=== PATIENT | female | born 1950 | race Caucasian/White ===

== ENCOUNTER 2020-04-20 09:58 | Emergency (ER) | payer MEDICARE, SELFPAY ==
--- NOTE | ~2020-04-20 | CT_ITS ---
EXAMINATION: CT brain wo con, CT cervical spine wo con EXAM DATE: 04/20/2020 11:23 INDICATION: Fall, occipital head injury, pain. TECHNIQUE: Spiral CT of the head was performed without contrast. Axial, coronal and sagittal images were reviewed. Spiral CT of the cervical spine was performed without contrast. Axial images were rev iewed. Coronal and sagittal reformatted images were also reviewed. The dose-length product (DLP) fo r this examination was 605.33 (accession [id number]), 483.19 (accession [id number]) mGy-cm. The exposure was tailored according to patient size, and iterative reconstruction (ASIR) was used as additional dose reduction technique. There is no prior study for comparison. FINDINGS: HEAD CT: There is no acute intraparenchymal hemorrhage. No evidence of intraparenchymal brain mass l esion. No evidence of acute infarction. There is no mass effect or midline shift. There is no obstru ctive hydrocephalus suspected. There are no extra-axial collections. There are no acute calvarial f ractures. The orbits are unremarkable. Small posterior scalp swelling, contusion. Trace fluid in th e right maxillary sinus. CERVICAL CT: There is no evidence of acute cervical fracture. The odontoid process is intact. Pre- dens space is normal. Prevertebral soft tissue is normal. There are no soft tissue abnormalities id entified. There is no disc space widening or traumatic vertebral body subluxation suspected. Overall moderate cervical spondylosis. A detailed level by level evaluation of spondylosis can be added as a ddendum if requested. IMPRESSION: 1. No acute intracranial findings or cervical fracture. 2. Small posterior scalp contusion, swelling. Reviewed, dictated and finalized at location A. LING MACHINE OPERATOR IMPRESSION: 1. No acute intracranial findings or cervical fracture. 2. Small posterior scalp contusion, swelling.
[2020-04-20 10:12] VITALS: BP 160/80; PULSE 67; RESP 14; TEMP 36.7; O2SAT 96
--- NOTE | 2020-04-20 11:42 | ED.GENADULT ---
HPI - General Adult General Chief complaint: Headache Stated complaint: head injury Source: patient History of Present Illness HPI narrative: Patient is a 69 y/o female complaining of occipital headache after she fell backwards and hit her head 1-2 hours ago. She states that she was taking some wood out of her SUV and the lift gate opened up and struck her and pushed her back causing her to fall backwards. She describes her pain as aching and rates it as 1/10. She denies any LOC. She denies any neck pain, back pain, chest pain or abdominal pain. She has no focal weakness or numbness. Related Data Home Medications Medication Instructions Recorded Confirmed omeprazole 20 mg capsule,delayed 20 mg PO DAILY 04/13/19 05/10/19 release Adult Probiotic 3,000 mmu cells PO DAILY 05/10/19 05/22/19 Adults Multivitamin 1 tablet PO DAILY 05/10/19 05/22/19 Fish Oil 1 cap PO DAILY 05/10/19 05/22/19 Glucosamine Chondroitin 1 cap PO DAILY 05/10/19 05/22/19 cholecalciferol (vitamin D3) 2,000 unit PO BID 05/10/19 05/22/19 coenzyme Q10 [Co Q-10] 100 mg PO DAILY 05/10/19 05/22/19 cranberry 400 mg PO DAILY 05/10/19 05/22/19 vitamin E 400 unit PO 3XW 05/10/19 05/10/19 Allergies Allergy/AdvReac Type Severity Reaction Status Date / Time No Known Allergies Allergy Verified 05/22/19 09:42 Review of Systems Constitutional: Constitutional: Denies chills, Denies fever(s), Reports headache(s) and Denies weakness Eyes: Eyes: Denies blurry vision ENT: Reports headache(s) and Denies neck pain Cardiovascular: Cardiovascular: Denies chest pain and Denies dyspnea Respiratory: Respiratory: Denies cough and Denies dyspnea Gastrointestinal: Gastrointestinal: Denies abdominal pain, Denies diarrhea, Denies nausea and Denies vomiting Genitourinary: Genitourinary: Denies hematuria and Denies dysuria Musculoskeletal: Musculoskeletal: Denies back pain and Denies neck pain Neurologic: Reports headache(s) and Denies weakness PMFSH Family History Family History Sibling Family history of gastrointestinal disorder Patient's brother is in good health Family history of genetic disorder Father Acute myocardial infarction Mother Family history of chronic obstructive pulmonary disease Grandparent Carcinoma of colon Social History Social History Smoking status: Never smoker Second hand tobacco smoke exposure: No Alcohol intake: never Exam Const: General: no acute distress and well developed Orientation/consciousness: oriented to person, oriented to place, oriented to time and patient oriented x3 HENMT: Head: normocephalic Ears: external ears normal General nose exam: Normal external nose present Eyes: General: appearance normal, both eyes and all related structures Conjunctivae: conjunctivae normal Neck: Neck: normal visual inspection and full ROM Chest: Chest palpation & inspection: normal inspection of the chest and no tenderness Resp: Effort & Inspection: normal respiratory effort Auscultation: clear to auscultation bilaterally Cardio: Rate: regular rate Rhythm: regular rhythm GI: GI Palp: No abdominal tenderness and Yes Soft to palpation Skin: General skin exam: normal color and turgor normal Neuro: General: oriented to person, oriented to place, oriented to time and patient oriented x3 Cranial nerves: Yes CN's II-XII intact bilaterally Cognition (Neuro): normal cognition Speech: normal speech Motor exam (neuro): 5/5 motor strength present throughout Sensory Exam: normal sensation Coordination: [id number] test normal and [id number] test normal Extrem: General: normal to inspection, full ROM and no pedal edema Psych: Appearance: grossly normal Mental Status: mental status grossly normal Affect: normal affect Course Vital Signs Vital signs: Vital Signs Temperature 36.7 C 04/20/20
[2020-04-20 12:00] VITALS: BP 154/70; PULSE 76; RESP 16; O2SAT 99
== END 2020-04-20 12:00 | disposition home or self-care (01) ==
PROVIDERS: Emergency Provider Emergency Medicine; PCP Physician Assistant
DX: S00.03XA Contusion of scalp, initial encounter (principal); W18.09XA Striking against other object with subsequent fall, initial encounter
CPT/HCPCS: 70450; 72125; 99284

== ENCOUNTER → 2020-05-04 18:12 | Outpatient (CLI) | payer MEDICARE, SELFPAY ==
--- NOTE | ~2020-05-04 | MM_ITS ---
EXAMINATION: MM screening homero BI w jo HISTORY: Screening mammogram TECHNIQUE: Craniocaudal and mediolateral oblique 3-D tomosynthesis images were obtained and synthetic 2-D images were generated. CAD analysis was submitted and interpreted. COMPARISON: 04/01/2019, 10/16/2017, 07/25/2016 bilateral digital screening mammogram examinations BREAST PARENCHYMAL COMPOSITION: There are scattered areas of fibroglandular density. FINDINGS: Stable mild fibroglandular asymmetry. There is no evidence of suspicious mass, calcificatio n, or architectural distortion to suggest malignancy in either breast. There has been no suspicious i nterval change. IMPRESSION: 1. No mammographic evidence of malignancy. 2. Recommend routine screening mammography in one year. BI-RADS Category 2: Benign finding(s). Reviewed, dictated and finalized at location A. LLER WORKER
== END ==
PROVIDERS: PCP Physician Assistant; Visit Provider Obstetrics & Gynecology
DX: Z12.31 Encounter for screening mammogram for malignant neoplasm of breast (principal)
CPT/HCPCS: 77063; 77067

== ENCOUNTER → 2021-06-03 02:33 | Outpatient (CLI) | payer MEDICARE, SELFPAY ==
[2021-06-04 14:05] LABS: SARS-CoV-2 RNA PCR Positive
== END ==
PROVIDERS: PCP Physician Assistant; Visit Provider Physician Assistant
DX: U07.1 COVID-19 (principal)
CPT/HCPCS: C9803; U0003; U0005

== ENCOUNTER 2021-06-09 07:46 | Outpatient (RCR) | payer MEDICARE, SELFPAY ==
[2021-06-09 13:40] VITALS: BP 134/66; PULSE 78; RESP 20; TEMP 36.1; O2SAT 98
[2021-06-09] MEDS: diphenhydrAMINE HCl CAP 25 MG CAPSULE PO (13:45)
[2021-06-09] MEDS: FAMOTIDINE 20 MG TABLET PO (13:45)
[2021-06-09] MEDS: ACETAMINOPHEN 325 MG TABLET 650 MG PO (13:45)
[2021-06-09 14:47] VITALS: BP 140/62; PULSE 66; O2SAT 97
--- NOTE | 2021-06-09 14:49 | PC.NURSE ---
Patient stated she was feeling warm to the chest and VS as recorded. It only lasted for less than 1minute and stated it has gone away, and at this time she has no complaints of any pain or problems. Continue to observe at this time.
[2021-06-09] MEDS: HYDROCORTISONE SODIUM SUCCINATE 100 MG/2 ML VIAL IV PUSH (14:56)
--- NOTE | 2021-06-09 15:03 | PC.NURSE ---
Patient having feelings of flushing in the chest area and up into her neck. Denies shortness of breath or chest pain. Solucortef given. Patient's vital signs are stable. Feeling of flushing started approximately 15 minutes after completion of monoclonal antibody. After the administration of Solucortef, patient states that feeling of flushing have gone away.
[2021-06-09 15:16] VITALS: BP 135/59; PULSE 55; O2SAT 98
== END 2021-06-09 17:00 ==
LOC: AMCINF 07:46
PROVIDERS: PCP Internal Medicine; Referring Provider Internal Medicine; Visit Provider Internal Medicine Hematology & Oncology
DX: U07.1 COVID-19 (principal)
CPT/HCPCS: 96374; A9270; J1720; M0247

== ENCOUNTER → 2021-08-23 18:13 | Outpatient (CLI) | payer MEDICARE, SELFPAY ==
--- NOTE | ~2021-08-23 | MM_ITS ---
EXAMINATION: MM screening homero BI w jo HISTORY: Screening mammogram TECHNIQUE: Craniocaudal and mediolateral oblique 3-D tomosynthesis images were obtained and synthetic 2-D images were generated. CAD analysis was submitted and interpreted. COMPARISON: 05/04/2020, 04/01/2019, 10/16/2017 bilateral screening mammogram examinations BREAST PARENCHYMAL COMPOSITION: There are scattered areas of fibroglandular density. FINDINGS: Stable mild fibroglandular asymmetry, possibly related to prior benign excisional biopsy on the right. There is no evidence of suspicious mass, calcification, or architectural distortion to suh ggest malignancy in either breast. There has been no suspicious interval change. IMPRESSION: 1. No mammographic evidence of malignancy. 2. Recommend routine screening mammography in one year. BI-RADS Category 2: Benign finding(s). Reviewed, dictated and finalized at location A.
== END ==
PROVIDERS: Visit Provider Obstetrics & Gynecology
DX: Z12.31 Encounter for screening mammogram for malignant neoplasm of breast (principal)
CPT/HCPCS: 77063; 77067

== ENCOUNTER → 2022-12-12 12:03 | Outpatient (CLI) | payer MEDICARE, SELFPAY ==
--- NOTE | ~2022-12-12 | MM_ITS ---
EXAMINATION: MM screening homero BI w jo HISTORY: Screening mammogram TECHNIQUE: Craniocaudal and mediolateral oblique 3-D tomosynthesis images were obtained and synthetic 2-D images were generated. CAD analysis was submitted and interpreted. COMPARISON: 08/23/2021, 05/04/2020, 04/01/2019 bilateral screening mammogram examinations BREAST PARENCHYMAL COMPOSITION: There are scattered areas of fibroglandular density. FINDINGS: Stable fibroglandular asymmetry. There is no evidence of suspicious mass, calcification, or architectural distortion to suggest malignancy in either breast. There has been no suspicious interv al change. IMPRESSION: 1. Stable mild fibroglandular asymmetry. No mammographic evidence of malignancy. 2. Recommend routine screening mammography in one year. BI-RADS Category 2: Benign finding(s). Reviewed, dictated and finalized at location A. IMPRESSION: 1. Stable mild fibroglandular asymmetry. No mammographic evidence of malignancy . 2. Recommend routine screening mammography in one year. BI-RADS Category 2: Benign finding(s).
== END ==
PROVIDERS: PCP Obstetrics & Gynecology; Visit Provider Obstetrics & Gynecology
DX: Z12.31 Encounter for screening mammogram for malignant neoplasm of breast (principal)
CPT/HCPCS: 77063; 77067

== ENCOUNTER 2023-10-04 14:22 | Emergency (ER) | payer MEDICARE, SELFPAY ==
--- NOTE | ~2023-10-04 | CT_ITS ---
EXAMINATION: CT brain wo con DATE: 10/04/2023 14:42 INDICATION: Head injury. TECHNIQUE: Computed tomography (CT) of the head was performed without intravenous contrast. The mA wa s adjusted according to patient size. Iterative reconstruction technique was employed. The dose-lengt h product was 681.00 mGy-cm. COMPARISON: Head CT 04/20/2020 FINDINGS: There is no intracranial hemorrhage, acute infarction, or abnormal intracranial mass lesion . There are scattered areas of low attenuation in the cerebral white matter, which is within normal l imits for the patient's age. The ventricles are normal in size. There is mucosal thickening in the pa ranasal sinuses. There are fractures of the nasal bones. The mastoid air cells are normal. IMPRESSION: 1. Fractures of the nasal bones. 2. Normal aging brain. Reviewed, dictated and finalized at location A.
[2023-10-04 14:30] VITALS: BP 155/82; PULSE 77; RESP 18; TEMP 36.6; O2SAT 95
--- NOTE | 2023-10-04 15:41 | ED.FALL ---
HPI - Fall General Chief Complaint: Fall Stated Complaint: fall Time Seen by Provider: 10/04/23 14:26 History of Present Illness HPI Narrative: Patient is a 73-year-old female who presents ER after a fall. She is walking in her living room when her foot caught the rug and she fell face down. She struck her head. No LOC. She does not take blood thinning medications. She has had pain and bruising over her nose. She reports a family member of a head bleed after traumatic injury and she is concerned the same may happen her. No numbness or weakness to an arm or leg. No change in vision or hearing. Patient did have bleeding from her nose after trauma. Related Data Home Medications Medication Instructions Recorded Confirmed omeprazole 20 mg capsule,delayed 20 mg PO DAILY 04/13/19 10/24/22 release cholecalciferol (vitamin D3) 50 2,000 unit PO BID 05/10/19 10/24/22 mcg (2,000 unit) tablet coenzyme Q10 100 mg capsule (Co 100 mg PO DAILY 05/10/19 10/24/22 Q-10) cranberry 400 mg capsule 400 mg PO DAILY 05/10/19 10/24/22 glucosamine sulf dipot 1 cap PO DAILY 05/10/19 10/24/22 chlr,msm,chond 550 mg-C 30 mg-sumanth 1 mg capsule (Glucosamine Chondroitin) lactobacillus combination no.8 3 3,000 mmu cells PO DAILY 05/10/19 10/24/22 billion cell capsule (Adult Probiotic) omega-3 950 mg-dha 320 mg-epa 630 1 cap PO DAILY 05/10/19 10/24/22 mg-fish oil 1,360 mg capsule (Fish Oil) vitamin E 268 mg (400 unit) capsule 400 unit PO 3XW 05/10/19 10/24/22 Allergies Allergy/AdvReac Type Severity Reaction Status Date / Time No Known Allergies Allergy Verified 10/04/23 14:33 Review of Systems Review of Systems: All systems reviewed & are unremarkable except as noted in HPI and below Constitutional: Constitutional: Reports no additional constitutional complaints ENT: Denies nasal congestion and Denies sore throat Comments: Nasal pain Cardiovascular: Cardiovascular: Reports no additional cardiovascular complaints Respiratory: Respiratory: Reports no additional respiratory complaints Gastrointestinal: Gastrointestinal: Reports no additional gastrointestinal complaints Neurologic: Reports system reviewed and no additional complaints, except as documented PMF Past Medical History Medical History Broken wrist Hyperlipidemia Hyperparathyroidism Surgical History Surgical History H/O breast biopsy History of delivery Hx of tonsillectomy Family History Family History Sibling Family history of gastrointestinal disorder Patient's brother is in good health Family history of genetic disorder Father Acute myocardial infarction Mother Family history of chronic obstructive pulmonary disease Grandparent Carcinoma of colon Social History Social History Smoking status: Never smoker Second hand tobacco smoke exposure: No Alcohol intake: never Substance use: unknown Lack of Transportation: No Lack of Food: Never True Current Housing: I Have Housing Concerned About Future Housing: No Difficulty Paying Gas/Electric Bills: No Difficulty Paying for Meds: No Currently Unemployed: No Education: High School Diploma/GED Difficulty w/ Childcare or Family Care: No Exam Narrative: GENERAL: Well-appearing, well-nourished, and in no acute distress. HEAD: Normocephalic, soft tissue swelling upper central forehead EYES: PERRL and EOMI. ENT: Mucous membranes moist. bruising over the bridge of the nose as well as tenderness. CHEST: Clear to auscultation. No respiratory distress. HEART: Regular rate and rhythm. Normal peripheral pulses. EXTREMITIES: Normal range of motion. No edema. SKIN: Warm, dry, no rash. NEUR
[2023-10-04 16:10] VITALS: BP 142/65; PULSE 77; RESP 19; TEMP 36.6; O2SAT 93
== END 2023-10-04 16:11 | disposition home or self-care (01) ==
PROVIDERS: Emergency Provider Emergency Medicine; PCP Physician Assistant
DX: S02.2XXA Fracture of nasal bones, initial encounter for closed fracture (principal); R04.0 Epistaxis; E78.5 Hyperlipidemia, unspecified; E21.3 Hyperparathyroidism, unspecified; W18.09XA Striking against other object with subsequent fall, initial encounter
CPT/HCPCS: 70450; 99284

== ENCOUNTER 2023-10-06 16:26 | Emergency (ER) | payer MEDICARE, SELFPAY ==
--- NOTE | ~2023-10-06 | CT_ITS ---
EXAMINATION:CT diagnostic chest wo con DATE: 10/06/2023 20:14 INDICATION: Left chest pain. Fall. TECHNIQUE: Computed tomography (CT) of the chest was performed without intravenous contrast. Automate d exposure control and iterative reconstruction technique were employed. The dose-length product (DLP ) was 819.56 mGy-cm. COMPARISON: None. FINDINGS: The lungs demonstrate mild atelectasis. There is mild bronchiectasis in the inferior lungs. A calcified left lung nodule is consistent with old granulomatous disease. No pleural effusion. The heart size is normal. No pericardial effusion. There is a 2.7 m cyst in right kidney. There are bridg ing endplate osteophytes at multiple levels in the spine, consistent with diffuse idiopathic skeletal hyperostosis (DISH). There is mild thoracic spondylosis and severe cervical spondylosis. There are o ld healed bilateral rib fractures. IMPRESSION: 1. No acute rib fracture. Reviewed, dictated and finalized at location E. IMPRESSION: 1. No acute rib fracture.
--- NOTE | 2023-10-06 16:28 | ECG_ITS ---
SEE SCANNED COPY FOR CONFIRMED REPORT MTDD
[2023-10-06 16:44] VITALS: BP 142/71; PULSE 69; RESP 18; TEMP 36.2; O2SAT 96
[2023-10-06 19:25] VITALS: BP 154/76; PULSE 77; RESP 15; O2SAT 95
[2023-10-06 19:32] VITALS: BP 148/72; PULSE 73; RESP 13; O2SAT 94
[2023-10-06 19:51] VITALS: BP 142/66; PULSE 76; RESP 16; O2SAT 97
--- NOTE | 2023-10-06 20:05 | ED.FALL ---
HPI - Fall General Chief Complaint: Fall Stated Complaint: pain under left breast Time Seen by Provider: 10/06/23 19:28 Source: patient Mode of arrival: ambulatory Limitations: no limitations History of Present Illness HPI Narrative: This is a 73 year old female who presents to the ED with chief complaint of left-sided rib pain following a fall that occurred 2 days ago. Patient reports that she was seen here and had imaging done of the brain which was fine as well as facial imaging that showed nondisplaced nasal bone fracture. However over the past couple of days patient has had increased left-sided rib pain anteriorly. Reports today it started to hurt a lot when she took a deep breath. Denies any further sites of pain or injury. Related Data Home Medications Medication Instructions Recorded Confirmed omeprazole 20 mg capsule,delayed 20 mg PO DAILY 04/13/19 10/24/22 release cholecalciferol (vitamin D3) 50 2,000 unit PO BID 05/10/19 10/24/22 mcg (2,000 unit) tablet coenzyme Q10 100 mg capsule (Co 100 mg PO DAILY 05/10/19 10/24/22 Q-10) cranberry 400 mg capsule 400 mg PO DAILY 05/10/19 10/24/22 glucosamine sulf dipot 1 cap PO DAILY 05/10/19 10/24/22 chlr,msm,chond 550 mg-C 30 mg-sumanth 1 mg capsule (Glucosamine Chondroitin) lactobacillus combination no.8 3 3,000 mmu cells PO DAILY 05/10/19 10/24/22 billion cell capsule (Adult Probiotic) omega-3 950 mg-dha 320 mg-epa 630 1 cap PO DAILY 05/10/19 10/24/22 mg-fish oil 1,360 mg capsule (Fish Oil) vitamin E 268 mg (400 unit) capsule 400 unit PO 3XW 05/10/19 10/24/22 Allergies Allergy/AdvReac Type Severity Reaction Status Date / Time No Known Allergies Allergy Verified 10/04/23 14:33 Review of Systems Review of Systems: All systems as dictated in [facility] Past Medical History Medical History Broken wrist Hyperlipidemia Hyperparathyroidism Surgical History Surgical History H/O breast biopsy History of delivery Hx of tonsillectomy Family History Family History Sibling Family history of gastrointestinal disorder Patient's brother is in good health Family history of genetic disorder Father Acute myocardial infarction Mother Family history of chronic obstructive pulmonary disease Grandparent Carcinoma of colon Social History Social History Smoking status: Never smoker Second hand tobacco smoke exposure: No Alcohol intake: never Substance use: unknown Lack of Transportation: No Lack of Food: Never True Current Housing: I Have Housing Concerned About Future Housing: No Difficulty Paying Gas/Electric Bills: No Difficulty Paying for Meds: No Currently Unemployed: No Education: High School Diploma/GED Difficulty w/ Childcare or Family Care: No Exam Narrative: GENERAL: Well-appearing, well-nourished, and in no acute distress. HEAD: Normocephalic, atraumatic. EYES: PERRLA and EOMI. ENT: Nares clear, no rhinorrhea or epistaxis. Mucous membranes moist. Oropharynx without tonsillar hypertrophy exudate or other lesions. NECK: Supple. No adenopathy or masses. CHEST: No respiratory distress. Clear to auscultation. No wheezes rales or rhonchi. Breath sounds equal bilaterally Moderate tenderness to the left anterior inferior ribs. No bruising or crepitus. HEART: Regular rate and rhythm. No murmur heard. Normal peripheral pulses. ABDOMEN: Soft, nontender, nondistended, normal active bowel sounds. MSK: Normal range of motion. No edema. SKIN: Warm, dry, no rash. NEURO: Alert and oriented x3. No focal deficits. PSYCH: Normal mood and affect. Course Vital Signs Vital signs: Vital Signs Temperature 97.2 F L 10/06/23 16:44 Pulse R
[2023-10-06] MEDS: IBUPROFEN 400 MG TABLET 800 MG PO (20:46)
[2023-10-06 21:08] VITALS: BP 154/76; PULSE 78; RESP 18; O2SAT 99
== END 2023-10-06 21:10 | disposition home or self-care (01) ==
PROVIDERS: Emergency Provider Physician Assistant; PCP Physician Assistant
DX: R07.81 Pleurodynia (principal); E78.5 Hyperlipidemia, unspecified; E21.3 Hyperparathyroidism, unspecified; W19.XXXA Unspecified fall, initial encounter
CPT/HCPCS: 71250; 93005; 99284; A9270

== ENCOUNTER 2023-12-11 09:12 | Outpatient (CLI) | payer MEDICARE, SELFPAY ==
--- NOTE | ~2023-12-11 | MMUS_ITS ---
EXAMINATION: MM diagnostic homero BI w jo, US breast LT limited HISTORY: Palpable left breast nodule TECHNIQUE: Additional 3-D tomosynthesis images of the breasts were performed and synthetic 2-D images were generated. CAD analysis was submitted and interpreted. High resolution Limited left breast ultr asound was performed. COMPARISON: Comparison to multiple prior studies sequentially, with oldest reviewed study dated 07/25. BREAST PARENCHYMAL COMPOSITION: Not dense: There are scattered areas of fibroglandular density. FINDINGS: MAMMOGRAPHIC FINDINGS: There are no suspicious masses, calcifications or architectural distortion in the breast to suggest m alignancy. The breasts are stable. ULTRASOUND: Limited left breast ultrasound: In the area of palpable concern at 10:00, 10 cm from the nipple, ther e is a 4 mm simple cyst. No suspicious masses to suggest malignancy. IMPRESSION: 1. No evidence for malignancy in either breast. 2. Routine yearly screening mammogram and regular clinical breast examination are recommended. BI-RADS Category 2: Benign finding(s). Reviewed, dictated and finalized at location B. IMPRESSION: 1. No evidence for malignancy in either breast. 2. Routine yearly screening mammogram and regular clinical breast examination a re recommended. BI-RADS Category 2: Benign finding(s).
== END 2023-12-11 09:13 ==
LOC: MICIMG 09:14
PROVIDERS: PCP Nurse Practitioner; Visit Provider Obstetrics & Gynecology
DX: N63.20 Unspecified lump in the left breast, unspecified quadrant (principal); N60.02 Solitary cyst of left breast
CPT/HCPCS: 76642; 77062; 77066; G0279

== ENCOUNTER 2025-04-21 13:31 | Outpatient (CLI) | payer MEDICARE, SELFPAY ==
--- NOTE | ~2025-04-21 | MM_ITS ---
EXAMINATION: MM screening homero BI w jo HISTORY: Screening TECHNIQUE: Craniocaudal and mediolateral oblique 3-D tomosynthesis images were obtained and synthetic 2-D images were generated. CAD analysis was submitted and interpreted. COMPARISON: Comparison to multiple prior studies sequentially, with oldest reviewed study dated , 07/25/2016 BREAST PARENCHYMAL COMPOSITION: There are scattered areas of fibroglandular density. FINDINGS: There is no evidence of suspicious mass, calcification, or architectural distortion to suggest malignancy in either breast. IMPRESSION: 1. No mammographic evidence of malignancy. 2. Recommend routine screening mammography in one year. BI-RADS Category 1: Negative Reviewed, dictated and finalized at location B. GER OF BROADCAST CONTENT
== END 2025-04-21 13:32 | disposition home or self-care (01) ==
LOC: CHSIMG 13:32
PROVIDERS: PCP Nurse Practitioner; Visit Provider Obstetrics & Gynecology
DX: Z12.31 Encounter for screening mammogram for malignant neoplasm of breast (principal)
CPT/HCPCS: 77063; 77067